=== PATIENT | male | born 1960 | race Caucasian/White ===

== ENCOUNTER 2020-12-10 18:55 | Inpatient (IN) ==
[2020-12-10] MEDS ORDERED: Ondansetron ODT 4 MG TAB.RAPDIS SL PRN (21:44)
[2020-12-10] MEDS ORDERED: Melatonin 3 MG TABLET PO PRN (21:44)
[2020-12-10] MEDS ORDERED: Naloxone 0.4 MG/ML INJ IVP PRN (21:44)
[2020-12-10] MEDS ORDERED: Dextrose Gel 15 GM/37.5 ML TUBE PO PRN ×2 (21:48)
[2020-12-10] MEDS ORDERED: *HR* Dextrose 50 % in Water (Vial) 50 ML VIAL IVP PRN (21:48)
[2020-12-10] MEDS ORDERED: *HR* Labetalol 20 MG/4 ML SYRINGE IVP ONE (21:48)
[2020-12-10] MEDS ORDERED: D5% in Water 1,000 ML IVC PRN (21:48)
[2020-12-10 22:43] LABS: BUN/Creatinine Ratio 13 (6-26); Blood Urea Nitrogen 17 mg/dL (8-23); Carbon Dioxide 24 mEq/L (23-29); Chloride 103 mEq/L (98-107); Glucose 173 mg/dL (70-105); Osmolality,Calculated 288 (280-300); Potassium 3.4 mEq/L (3.5-5.1); Sodium 136 mEq/L (136-145); eGFR For African Americans > 60 (> 60); eGFR For Non-African Americans 55 (> 60)
[2020-12-10] MEDS: Insulin LISPRO 300 UNITS/3 ML VIAL SUBQ SCH (23:44)
[2020-12-11 02:14] LABS: Basophils # 0.1 K/mcL (0.0-0.2); Basophils % 0.7 %; Eosinophils # 0.4 K/mcL (0.0-0.6); Eosinophils % 4.5 %; Hemoglobin 12.7 g/dL (12.9-16.9); Immature Granulocytes % 0.5 % (0-4); Lymphocytes # 2.3 K/mcL (0.6-4.6); Lymphocytes % 26.1 %; Mean Corpuscular HGB Conc 32.6 g/dL (31.6-35.5); Mean Corpuscular Volume 79.8 fL (83.0-100.0); Monocytes # 0.7 K/mcL (0.0-1.3); Monocytes % 7.7 %; Neutrophils # 5.4 K/mcL (1.6-8.9); Platelet Count 244 K/mcL (140-400); Red Blood Count 4.89 M/mcL (4.19-5.50); Red Cell Distribution Width 14.4 % (11.5-14.5); Segmented Neutrophils % 60.5 %; White Blood Count 8.8 K/mcL (4.3-11.1)
[2020-12-11 02:45] LABS: Alanine Aminotransferase 9 Units/L (7-52); Albumin 3.1 g/dL (3.5-5.7); Alkaline Phosphatase 54 Units/L (34-104); Aspartate Amino Transferase 15 Units/L (13-39); BUN/Creatinine Ratio 13 (6-26); Bilirubin,Total 0.8 mg/dL (0.3-1.0); Blood Urea Nitrogen 19 mg/dL (8-23); Calcium 8.6 mg/dL (8.6-10.3); Carbon Dioxide 26 mEq/L (23-29); Chloride 103 mEq/L (98-107); Globulin 3.1 g/dL (2.4-3.5); Glucose 252 mg/dL (70-105); Magnesium 1.2 mg/dL (1.6-2.6); Osmolality,Calculated 297 (280-300); Potassium 3.6 mEq/L (3.5-5.1); Sodium 138 mEq/L (136-145); Total Protein 6.2 g/dL (6.4-8.9); Troponin I 0.07 ng/mL (< 0.04); eGFR For African Americans > 60 (> 60); eGFR For Non-African Americans 51 (> 60)
[2020-12-11] MEDS: Insulin LISPRO 300 UNITS/3 ML VIAL SUBQ SCH ×4 (06:00→20:54)
[2020-12-11] MEDS ORDERED: Perflutren Lipid Microsphere 1.3 ML in 0.9 % Sodium Chloride 8.7 ML IVP PRN (06:45)
[2020-12-11] MEDS ORDERED: amLODIPine 5 MG TABLET PO SCH (09:00)
[2020-12-11 12:36] LABS: Bilirubin,Urine Negative (Negative); Blood,Urine Small (Negative); Clarity,Urine Clear (Clear); Color,Urine Yellow (Yellow); Glucose,Urine (UA) 50 mg/dL (Normal); Hyaline Casts,Urine Few per lpf (None Seen); Ketones,Urine Negative (Negative); Leukocyte Esterase,Urine Negative (Negative); Mucus,Urine Few per lpf (None-Few); Nitrite,Urine Negative (Negative); PH,Urine 6.5 pH Units (5.0-8.0); Protein,Urine >=300 mg/dL (Neg-Trace); RBC,Urine 0-3 per hpf (0-3); Specific Gravity,Urine 1.024 (1.010-1.025); Squamous Epithelial Cell,Urine Few per hpf (None-Few); Urobilinogen,Urine Normal (Normal); WBC,Urine 0-3 per hpf (0-3)
[2020-12-11 12:47] LABS: Amphetamine Screen,Urine Positive ng/mL (Cutoff=1000); Barbiturate Screen,Urine Negative ng/mL (Cutoff=200); Benzodiazepines Screen,Urine Negative ng/mL (Cutoff=200); Cannabinoid Screen,Urine Positive ng/mL (Cutoff = 50); Cocaine Screen,Urine Negative ng/mL (Cutoff= 300); Opiate Screen,Urine Negative ng/mL (Cutoff=300); Phencyclidine Screen,Urine Negative ng/mL (Cutoff=25)
[2020-12-11] MEDS: hydrALAZINE 25 MG TABLET PO SCH ×2 (14:13→20:54)
[2020-12-11] MEDS ORDERED: amLODIPine 5 MG TABLET PO ONE (17:00)
[2020-12-12] MEDS: Insulin LISPRO 300 UNITS/3 ML VIAL SUBQ SCH ×4 (08:31→20:40)
[2020-12-12] MEDS: hydrALAZINE 25 MG TABLET PO SCH ×3 (08:31→20:35)
[2020-12-12] MEDS: carvediloL 6.25 MG TABLET PO SCH ×2 (08:31→17:08)
[2020-12-12] MEDS: Acetaminophen 325 MG TABLET PO PRN ×3 (08:41→21:18)
[2020-12-12] MEDS ORDERED: amLODIPine 5 MG TABLET PO SCH (09:00)
[2020-12-12 10:09] LABS: Basophils # 0.1 K/mcL (0.0-0.2); Basophils % 0.7 %; Eosinophils # 0.4 K/mcL (0.0-0.6); Eosinophils % 4.3 %; Hemoglobin 13.2 g/dL (12.9-16.9); Immature Granulocytes % 0.4 % (0-4); Lymphocytes # 1.6 K/mcL (0.6-4.6); Lymphocytes % 19.1 %; Mean Corpuscular HGB Conc 32.2 g/dL (31.6-35.5); Mean Corpuscular Hemoglobin 25.6 pg (28.0-33.3); Mean Corpuscular Volume 79.5 fL (83.0-100.0); Mean Platelet Volume 9.1 fL (9.4-12.4); Monocytes # 0.5 K/mcL (0.0-1.3); Monocytes % 6.6 %; Neutrophils # 5.6 K/mcL (1.6-8.9); Platelet Count 215 K/mcL (140-400); Red Blood Count 5.16 M/mcL (4.19-5.50); Red Cell Distribution Width 14.3 % (11.5-14.5); Segmented Neutrophils % 68.9 %; White Blood Count 8.2 K/mcL (4.3-11.1)
[2020-12-12 10:28] LABS: BUN/Creatinine Ratio 15 (6-26); Blood Urea Nitrogen 17 mg/dL (8-23); Carbon Dioxide 27 mEq/L (23-29); Chloride 103 mEq/L (98-107); Glucose 233 mg/dL (70-105); Osmolality,Calculated 291 (280-300); Potassium 3.8 mEq/L (3.5-5.1); Sodium 136 mEq/L (136-145); eGFR For African Americans > 60 (> 60); eGFR For Non-African Americans > 60 (> 60)
[2020-12-13 01:52] LABS: Basophils # 0.1 K/mcL (0.0-0.2); Basophils % 0.7 %; Eosinophils # 0.4 K/mcL (0.0-0.6); Eosinophils % 4.8 %; Hematocrit 40.7 % (37.5-50.1); Hemoglobin 13.3 g/dL (12.9-16.9); Immature Granulocytes % 0.5 % (0-4); Lymphocytes # 2.1 K/mcL (0.6-4.6); Lymphocytes % 25.1 %; Mean Corpuscular HGB Conc 32.7 g/dL (31.6-35.5); Mean Corpuscular Hemoglobin 26.1 pg (28.0-33.3); Mean Corpuscular Volume 79.8 fL (83.0-100.0); Mean Platelet Volume 9.4 fL (9.4-12.4); Monocytes # 0.6 K/mcL (0.0-1.3); Monocytes % 7.2 %; Neutrophils # 5.1 K/mcL (1.6-8.9); Platelet Count 234 K/mcL (140-400); Red Cell Distribution Width 14.4 % (11.5-14.5); Segmented Neutrophils % 61.7 %; White Blood Count 8.3 K/mcL (4.3-11.1)
[2020-12-13 02:11] LABS: BUN/Creatinine Ratio 16 (6-26); Blood Urea Nitrogen 18 mg/dL (8-23); Carbon Dioxide 25 mEq/L (23-29); Chloride 101 mEq/L (98-107); Glucose 156 mg/dL (70-105); Osmolality,Calculated 285 (280-300); Potassium 3.5 mEq/L (3.5-5.1); Sodium 135 mEq/L (136-145); eGFR For African Americans > 60 (> 60); eGFR For Non-African Americans > 60 (> 60)
[2020-12-13] MEDS: Acetaminophen 325 MG TABLET PO PRN (07:48)
[2020-12-13] MEDS: hydrALAZINE 25 MG TABLET PO SCH ×3 (07:48→13:15)
[2020-12-13] MEDS: carvediloL 6.25 MG TABLET PO SCH (07:49)
[2020-12-13] MEDS: Insulin LISPRO 300 UNITS/3 ML VIAL SUBQ SCH ×2 (07:50→12:13)
[2020-12-13] MEDS ORDERED: lisinopriL 5 MG TABLET PO SCH ×2 (09:00)
[2020-12-13] MEDS ORDERED: Spironolactone 12.5 MG TABLET PO SCH (10:15)
[2020-12-13] MEDS ORDERED: Ipratropium/Albuterol Neb 3 ML IH PRN (14:41)
[2020-12-13 14:54] VITALS: BP 152/82
[2020-12-13] MEDS ORDERED: Doxycycline 100 MG CAPSULE PO SCH (15:24)
== END 2020-12-13 17:11 | disposition home or self-care (01) | DRG 292 ==
LOC: 3BNU → SUATTDRO 12-12 13:33
PROVIDERS: ADMIT Internal Medicine; ATTEND Internal Medicine

== ENCOUNTER 2021-02-12 17:22 | Inpatient (IN) ==
[2021-02-12] MEDS ORDERED: Naloxone 0.4 MG/ML INJ IVP PRN (20:29)
[2021-02-12] MEDS ORDERED: Acetaminophen 325 MG TABLET PO PRN (20:29)
[2021-02-12] MEDS ORDERED: Ondansetron 4 MG/2 ML VIAL IVP PRN ×2 (20:29→20:35)
[2021-02-12] MEDS ORDERED: Insulin LISPRO 300 UNITS/3 ML VIAL SUBQ PRN (20:35)
[2021-02-12] MEDS ORDERED: Nitroglycerin 0.4 MG TAB.SUBL SL PRN (20:35)
[2021-02-12] MEDS ORDERED: D5% in 0.45% NACL w KCl 20 MEQ/1,000 ML MLS IVC PRN (20:35)
[2021-02-12] MEDS ORDERED: *HR* Dextrose 50 % in Water (Vial) 50 ML VIAL IVP PRN (20:35)
[2021-02-12] MEDS ORDERED: D5% in 0.45% NACL 1,000 ML IVC PRN (20:35)
[2021-02-12] MEDS ORDERED: Perflutren Lipid Microsphere 1.3 ML in 0.9 % Sodium Chloride 8.7 ML IVP PRN (20:40)
[2021-02-12 21:32] LABS: Basophils # 0.1 K/mcL (0.0-0.2); Basophils % 0.4 %; Eosinophils % 0.1 %; Hematocrit 45.1 % (37.5-50.1); Hemoglobin 14.3 g/dL (12.9-16.9); Immature Granulocytes % 0.9 % (0-4); Lymphocytes # 1.8 K/mcL (0.6-4.6); Lymphocytes % 12.9 %; Mean Corpuscular HGB Conc 31.7 g/dL (31.6-35.5); Mean Corpuscular Hemoglobin 25.4 pg (28.0-33.3); Mean Corpuscular Volume 80.1 fL (83.0-100.0); Mean Platelet Volume 9.4 fL (9.4-12.4); Monocytes # 0.9 K/mcL (0.0-1.3); Monocytes % 6.4 %; Neutrophils # 10.8 K/mcL (1.6-8.9); Platelet Count 246 K/mcL (140-400); Red Blood Count 5.63 M/mcL (4.19-5.50); Red Cell Distribution Width 14.3 % (11.5-14.5); Segmented Neutrophils % 79.3 %; White Blood Count 13.7 K/mcL (4.3-11.1)
[2021-02-12 21:33] LABS: VBG HCO3 25 mEq/L (21-27); VBG PCO2 55 mmHg (41-51); VBG PH 7.27 pH Units (7.32-7.42); VBG PO2 92 mmHg (25-50)
[2021-02-12 21:48] LABS: INR 1.1; Prothrombin Time 12.8 Seconds (9.4-12.1)
[2021-02-12 21:49] LABS: Calcium 8.6 mg/dL (8.6-10.3)
[2021-02-12 21:52] LABS: Magnesium 1.4 mg/dL (1.6-2.6); Phosphorous 3.7 mg/dL (2.7-4.5)
[2021-02-12 21:58] LABS: Troponin I 0.82 ng/mL (< 0.04)
[2021-02-12] MEDS ORDERED: *HR* Heparin 5,000 UNIT/ML VIAL IVP ONE (22:18)
[2021-02-12] MEDS ORDERED: *HR* Heparin 5,000 UNIT/ML VIAL IVP PRN (22:18)
[2021-02-12] MEDS: Aspirin 81 MG TAB.CHEW PO SCH (22:30)
[2021-02-12] MEDS ORDERED: Insulin Human Regular 10 UNIT in 0.9 % Sodium Chloride 10 ML IV ONE (22:41)
[2021-02-12] MEDS ORDERED: Albuterol 2.5 MG/3 ML NEBULIZER IH ONE (22:41)
[2021-02-12] MEDS ORDERED: Calcium Gluconate 1gm/50mL 1 GM/50 ML BAG IVPB ONE (22:42)
[2021-02-12 22:44] LABS: Bilirubin,Urine Negative (Negative); Blood,Urine Trace (Negative); Clarity,Urine Clear (Clear); Color,Urine Yellow (Yellow); Glucose,Urine (UA) >=1000 mg/dL (Normal); Hyaline Casts,Urine Few per lpf (None Seen); Ketones,Urine Negative (Negative); Leukocyte Esterase,Urine Negative (Negative); Mucus,Urine Few per lpf (None-Few); Nitrite,Urine Negative (Negative); PH,Urine 5.5 pH Units (5.0-8.0); Protein,Urine >=600 mg/dL (Neg-Trace); RBC,Urine 0-3 per hpf (0-3); Specific Gravity,Urine 1.029 (1.010-1.025); Squamous Epithelial Cell,Urine Few per hpf (None-Few); Urobilinogen,Urine Normal (Normal); WBC,Urine 0-3 per hpf (0-3)
[2021-02-12] MEDS ORDERED: Magnesium Oxide 400 MG TABLET PO ONE (22:44)
[2021-02-12 22:53] LABS: Amphetamine Screen,Urine Negative ng/mL (Cutoff=1000); Barbiturate Screen,Urine Negative ng/mL (Cutoff=200); Benzodiazepines Screen,Urine Negative ng/mL (Cutoff=200); Cannabinoid Screen,Urine Negative ng/mL (Cutoff = 50); Cocaine Screen,Urine Negative ng/mL (Cutoff= 300); Opiate Screen,Urine Negative ng/mL (Cutoff=300); Phencyclidine Screen,Urine Negative ng/mL (Cutoff=25)
[2021-02-12 23:45] LABS: Heparin anti-factor XA UFH < 0.04 IU/mL (0.30-0.70)
[2021-02-12 23:46] LABS: INR 1.1; Prothrombin Time 12.3 Seconds (9.4-12.1)
[2021-02-13] MEDS: Heparin 25,000UNIT/250ML 1/2NS 25,000 UNIT/250 ML IV.SOLN IVC SCH ×2 (00:20→19:10)
[2021-02-13 00:56] LABS: Creatinine,Urine 191 mg/dL; Protein/Creatinine Ratio,Urine 4.25 mg/mg (0.00-0.20); Sodium, Urine 11.8 mEq/L
[2021-02-13 01:15] LABS: Basophils # 0.1 K/mcL (0.0-0.2); Basophils % 0.6 %; Eosinophils % 0.2 %; Hematocrit 44.1 % (37.5-50.1); Hemoglobin 13.8 g/dL (12.9-16.9); Immature Granulocytes % 0.7 % (0-4); Lymphocytes # 2.7 K/mcL (0.6-4.6); Lymphocytes % 21.2 %; Mean Corpuscular HGB Conc 31.3 g/dL (31.6-35.5); Mean Corpuscular Hemoglobin 25.3 pg (28.0-33.3); Mean Corpuscular Volume 80.9 fL (83.0-100.0); Mean Platelet Volume 9.6 fL (9.4-12.4); Monocytes # 1.2 K/mcL (0.0-1.3); Monocytes % 9.1 %; Neutrophils # 8.7 K/mcL (1.6-8.9); Platelet Count 243 K/mcL (140-400); Red Blood Count 5.45 M/mcL (4.19-5.50); Red Cell Distribution Width 14.4 % (11.5-14.5); Segmented Neutrophils % 68.2 %; White Blood Count 12.7 K/mcL (4.3-11.1)
[2021-02-13 01:32] LABS: Estimated Average Glucose 303 mg/dl; Hemoglobin A1C 12.2 %
[2021-02-13 01:35] LABS: Calcium 8.5 mg/dL (8.6-10.3)
[2021-02-13 01:37] LABS: Calcium 8.6 mg/dL (8.6-10.3); Chol/HDL Ratio 8.3 (0-4.9); Magnesium 1.6 mg/dL (1.6-2.6); Phosphorous 3.7 mg/dL (2.7-4.5)
[2021-02-13] MEDS ORDERED: Insulin DETEMIR 100 UNIT/ML X5UNITS SUBQ SCH ×2 (02:15→21:00)
[2021-02-13 02:52] LABS: VBG HCO3 26 mEq/L (21-27); VBG PCO2 48 mmHg (41-51); VBG PH 7.34 pH Units (7.32-7.42); VBG PO2 100 mmHg (25-50)
[2021-02-13] MEDS: 0.45 % Sodium Chloride w/KCl 20 MEQ/1,000 ML MLS IVC SCH ×3 (07:18→07:20)
[2021-02-13] MEDS: *HR* Heparin 5,000 UNIT/ML VIAL IVP PRN ×3 (08:59→23:21)
[2021-02-13] MEDS: Aspirin 81 MG TAB.CHEW PO SCH (09:00)
[2021-02-13] MEDS ORDERED: Insulin DETEMIR 100 UNIT/ML X5UNITS SUBQ ONE ×2 (10:04→15:15)
[2021-02-13] MEDS ORDERED: Ringers Solution, Lactated 1,000 ML IVC ONE (10:07)
[2021-02-13] MEDS: Insulin LISPRO 300 UNITS/3 ML VIAL SUBQ SCH ×3 (12:06→21:07)
[2021-02-13] MEDS: Insulin DETEMIR 100 UNIT/ML X5UNITS SUBQ SCH (21:07)
[2021-02-14 05:55] LABS: Hematocrit 39.5 % (37.5-50.1); Hemoglobin 12.7 g/dL (12.9-16.9); Mean Corpuscular HGB Conc 32.2 g/dL (31.6-35.5); Mean Corpuscular Hemoglobin 26.1 pg (28.0-33.3); Mean Corpuscular Volume 81.1 fL (83.0-100.0); Mean Platelet Volume 9.4 fL (9.4-12.4); Platelet Count 211 K/mcL (140-400); Red Blood Count 4.87 M/mcL (4.19-5.50); Red Cell Distribution Width 14.4 % (11.5-14.5); White Blood Count 10.7 K/mcL (4.3-11.1)
[2021-02-14] MEDS ORDERED: *HR* Metoprolol 5 MG/5 ML VIAL IVP ONE (05:57)
[2021-02-14 06:20] LABS: Calcium 8.7 mg/dL (8.6-10.3); Potassium 4.1 mEq/L (3.5-5.1)
[2021-02-14] MEDS: Insulin LISPRO 300 UNITS/3 ML VIAL SUBQ SCH ×4 (08:20→20:37)
[2021-02-14] MEDS: Metoprolol XL (24 HR) Succ 25 MG TAB.ER.24H PO SCH ×2 (09:10→20:36)
[2021-02-14] MEDS: Aspirin 81 MG TAB.CHEW PO SCH (09:10)
[2021-02-14] MEDS: Heparin 25,000UNIT/250ML 1/2NS 25,000 UNIT/250 ML IV.SOLN IVC SCH (09:42)
[2021-02-14] MEDS: Insulin DETEMIR 100 UNIT/ML X5UNITS SUBQ SCH (20:37)
[2021-02-14] MEDS ORDERED: Apixaban 5 MG TABLET PO SCH (21:00)
[2021-02-15 01:32] LABS: Hematocrit 40.5 % (37.5-50.1); Hemoglobin 12.9 g/dL (12.9-16.9); Mean Corpuscular HGB Conc 31.9 g/dL (31.6-35.5); Mean Corpuscular Hemoglobin 25.6 pg (28.0-33.3); Mean Corpuscular Volume 80.4 fL (83.0-100.0); Mean Platelet Volume 9.7 fL (9.4-12.4); Platelet Count 227 K/mcL (140-400); Red Blood Count 5.04 M/mcL (4.19-5.50); Red Cell Distribution Width 14.4 % (11.5-14.5); White Blood Count 10.9 K/mcL (4.3-11.1)
[2021-02-15 01:50] LABS: Calcium 8.6 mg/dL (8.6-10.3); Potassium 3.9 mEq/L (3.5-5.1)
[2021-02-15] MEDS: Insulin LISPRO 300 UNITS/3 ML VIAL SUBQ SCH (07:54)
[2021-02-15] MEDS: Aspirin 81 MG TAB.CHEW PO SCH (07:55)
[2021-02-15] MEDS: Metoprolol XL (24 HR) Succ 25 MG TAB.ER.24H PO SCH (07:55)
[2021-02-15 11:17] VITALS: BP 157/93; PULSE 75; TEMP 98; O2SAT 95
[2021-02-16 07:17] LABS: ANA IgG by ELISA NONE DETECTED (None Detected)
[2021-02-16 09:12] LABS: Lambda Qnt Free Light Chains 34.34 mg/L (5.71-26.30)
[2021-02-16 13:48] LABS: Kappa Qnt Free Light Chains 49.28 mg/L (3.30-19.40)
[2021-02-16 23:37] LABS: Alpha 2 Globulin (PEP) 1.03 g/dL (0.48-1.05); Beta Globulin (PEP) 0.78 g/dL (0.48-1.10)
[2021-02-17 06:56] LABS: IFE Reflexed NOT DONE
== END 2021-02-15 14:10 | disposition home or self-care (01) | DRG 280 ==
LOC: 2NNU → SUATTDRO 19:26 → 2ANU 02-14 18:06
PROVIDERS: ADMIT Internal Medicine; ATTEND Internal Medicine

== ENCOUNTER 2021-06-27 | Observation (INO) ==
[2021-06-28] MEDS ORDERED: Melatonin 3 MG TABLET PO PRN (04:51)
[2021-06-28] MEDS ORDERED: Naloxone 0.4 MG/ML INJ IVP PRN (04:51)
[2021-06-28] MEDS ORDERED: Perflutren Lipid Microsphere 1.3 ML in 0.9 % Sodium Chloride 8.7 ML IVP PRN (04:59)
[2021-06-28] MEDS ORDERED: *HR* Heparin 5,000 UNIT/ML VIAL IVP PRN (05:46)
[2021-06-28 05:51] LABS: Mean Corpuscular HGB Conc 32.5 g/dL (31.6-35.5); Mean Corpuscular Hemoglobin 25.4 pg (28.0-33.3); Mean Corpuscular Volume 78.3 fL (83.0-100.0); Platelet Count 254 K/mcL (140-400); Red Blood Count 5.11 M/mcL (4.19-5.50); Red Cell Distribution Width 14.2 % (11.5-14.5); White Blood Count 10.2 K/mcL (4.3-11.1)
[2021-06-28 05:58] LABS: Prothrombin Time 11.1 Seconds (9.4-12.1)
[2021-06-28 05:59] LABS: Heparin anti-factor XA UFH < 0.04 IU/mL (0.30-0.70)
[2021-06-28 06:00] LABS: Calcium 8.2 mg/dL (8.6-10.3); Potassium 3.7 mEq/L (3.5-5.1)
[2021-06-28 06:01] LABS: Activated Partial Thrombo Time 30.9 Seconds (26.0-36.0); Troponin I 0.1 ng/mL (< 0.04)
[2021-06-28 06:10] LABS: Magnesium 1.1 mg/dL (1.6-2.6)
[2021-06-28] MEDS: Heparin 25,000 UNIT/250 ML 25,000 UNIT/250 ML IV.SOLN IVC SCH ×2 (06:22→21:27)
[2021-06-28 06:27] LABS: Chol/HDL Ratio 7.1 (0-4.9)
[2021-06-28] MEDS: Acetaminophen 325 MG TABLET PO PRN ×2 (06:57→15:03)
[2021-06-28] MEDS: Metoprolol XL (24 HR) Succ 50 MG TAB.ER.24H PO SCH (08:08)
[2021-06-28] MEDS: Aspirin 81 MG TAB.CHEW PO SCH (08:08)
[2021-06-28] MEDS ORDERED: 0.9 % Sodium Chloride 1,000 ML IVC SCH (08:45)
[2021-06-28 09:13] LABS: Amphetamine Screen,Urine Negative ng/mL (Cutoff=1000); Barbiturate Screen,Urine Negative ng/mL (Cutoff=200); Benzodiazepines Screen,Urine Negative ng/mL (Cutoff=200); Cannabinoid Screen,Urine Negative ng/mL (Cutoff = 50); Cocaine Screen,Urine Negative ng/mL (Cutoff= 300); Opiate Screen,Urine Negative ng/mL (Cutoff=300); Phencyclidine Screen,Urine Negative ng/mL (Cutoff=25)
[2021-06-28 09:55] LABS: Estimated Average Glucose 212 mg/dl
[2021-06-28] MEDS ORDERED: Dextrose Gel 15 GM/37.5 ML TUBE PO PRN ×2 (10:52)
[2021-06-28] MEDS ORDERED: D5% in Water 1,000 ML IVC PRN (10:52)
[2021-06-28] MEDS ORDERED: *HR* Dextrose 50 % in Water (Syg) 50 ML SYRINGE IVP PRN (10:52)
[2021-06-28] MEDS: Insulin LISPRO 300 UNITS/3 ML VIAL SUBQ SCH ×2 (12:18→16:44)
[2021-06-28] MEDS: *HR* Heparin 5,000 UNIT/ML VIAL IVP PRN ×2 (14:57→22:32)
[2021-06-28] MEDS: hydrALAZINE 25 MG TABLET PO SCH (16:44)
[2021-06-28] MEDS: Isosorbide MONOnitrate (24 HR) 60 MG TAB.ER.24H PO SCH (16:44)
[2021-06-28] MEDS ORDERED: Insulin DETEMIR 100 UNIT/ML X5UNITS SUBQ SCH (21:00)
[2021-06-29] MEDS: hydrALAZINE 25 MG TABLET PO SCH ×2 (01:07→09:33)
[2021-06-29] MEDS: *HR* Heparin 5,000 UNIT/ML VIAL IVP PRN (05:41)
[2021-06-29 07:22] VITALS: O2SAT 95
[2021-06-29] MEDS: Insulin LISPRO 300 UNITS/3 ML VIAL SUBQ SCH (08:55)
[2021-06-29 09:28] LABS: Hematocrit 40.3 % (37.5-50.1); Hemoglobin 12.6 g/dL (12.9-16.9); Mean Corpuscular HGB Conc 31.3 g/dL (31.6-35.5); Mean Corpuscular Hemoglobin 24.9 pg (28.0-33.3); Mean Corpuscular Volume 79.5 fL (83.0-100.0); Mean Platelet Volume 9.2 fL (9.4-12.4); Platelet Count 230 K/mcL (140-400); Red Blood Count 5.07 M/mcL (4.19-5.50); Red Cell Distribution Width 14.6 % (11.5-14.5); White Blood Count 10.4 K/mcL (4.3-11.1)
[2021-06-29] MEDS: Isosorbide MONOnitrate (24 HR) 60 MG TAB.ER.24H PO SCH (09:33)
[2021-06-29] MEDS: Metoprolol XL (24 HR) Succ 50 MG TAB.ER.24H PO SCH (09:33)
[2021-06-29] MEDS: Aspirin 81 MG TAB.CHEW PO SCH (09:33)
[2021-06-29] MEDS: Acetaminophen 325 MG TABLET PO PRN (09:33)
[2021-06-29] MEDS: Heparin 25,000 UNIT/250 ML 25,000 UNIT/250 ML IV.SOLN IVC SCH (09:37)
[2021-06-29 09:56] LABS: Calcium 8.3 mg/dL (8.6-10.3)
[2021-06-29 11:45] VITALS: BP 147/70; PULSE 73; TEMP 97.6
== END 2021-06-29 13:42 | disposition home or self-care (01) ==
LOC: 3BNU → SUATTDRO 06-28 03:58
PROVIDERS: ADMIT Internal Medicine; ATTEND Internal Medicine

== ENCOUNTER 2021-08-25 22:28 | Inpatient (IN) ==
[2021-08-26] MEDS ORDERED: Isovue-370 500 ML BOTTLE IVP ONE (02:29)
[2021-08-26 02:45] LABS: Basophils # 0.1 K/mcL (0.0-0.2); Basophils % 0.7 %; Eosinophils # 0.2 K/mcL (0.0-0.6); Eosinophils % 2.4 %; Hematocrit 41.8 % (37.5-50.1); Immature Granulocytes % 0.4 % (0-4); Lymphocytes # 1.7 K/mcL (0.6-4.6); Lymphocytes % 16.6 %; Mean Corpuscular HGB Conc 31.1 g/dL (31.6-35.5); Mean Corpuscular Hemoglobin 25.3 pg (28.0-33.3); Mean Corpuscular Volume 81.5 fL (83.0-100.0); Mean Platelet Volume 9.2 fL (9.4-12.4); Monocytes # 0.6 K/mcL (0.0-1.3); Monocytes % 5.6 %; Neutrophils # 7.5 K/mcL (1.6-8.9); Platelet Count 277 K/mcL (140-400); Red Blood Count 5.13 M/mcL (4.19-5.50); Red Cell Distribution Width 14.7 % (11.5-14.5); Segmented Neutrophils % 74.3 %; White Blood Count 10.1 K/mcL (4.3-11.1)
[2021-08-26 03:10] LABS: Bilirubin,Urine Negative (Negative); Blood,Urine Trace (Negative); Clarity,Urine Clear (Clear); Color,Urine Light-Yellow (Yellow); Glucose,Urine (UA) 30 mg/dL (Normal); Hyaline Casts,Urine Few per lpf (None Seen); Ketones,Urine Negative (Negative); Leukocyte Esterase,Urine Negative (Negative); Nitrite,Urine Negative (Negative); Protein,Urine >=600 mg/dL (Neg-Trace); RBC,Urine 0-3 per hpf (0-3); Squamous Epithelial Cell,Urine Few per hpf (None-Few); Urobilinogen,Urine Normal (Normal); WBC,Urine 0-3 per hpf (0-3)
[2021-08-26 03:16] LABS: Albumin 3.9 g/dL (3.5-5.7); Albumin/Globulin Ratio 1.2 (1.1-2.2); Bilirubin,Direct 0.2 mg/dL (0.0-0.2); Bilirubin,Indirect 1.3 mg/dL (0.0-1.0); Bilirubin,Total 1.5 mg/dL (0.3-1.0); Calcium 9.5 mg/dL (8.6-10.3); Globulin 3.2 g/dL (2.4-3.5); Potassium 3.8 mEq/L (3.5-5.1); Total Protein 7.1 g/dL (6.4-8.9); Troponin I 0.06 ng/mL (< 0.04)
[2021-08-26] MEDS ORDERED: Furosemide 40 MG/4 ML VIAL IVP ONE (04:14)
[2021-08-26] MEDS: Nitroglycerin 0.4 MG TAB.SUBL SL PRN ×3 (05:01→05:14)
[2021-08-26] MEDS ORDERED: Melatonin 3 MG TABLET PO PRN (05:19)
[2021-08-26] MEDS ORDERED: Naloxone 0.4 MG/ML INJ IVP PRN (05:19)
[2021-08-26] MEDS ORDERED: *HR* Dextrose 50 % in Water (Syg) 50 ML SYRINGE IVP PRN (05:27)
[2021-08-26] MEDS ORDERED: D5% in Water 1,000 ML IVC PRN (05:27)
[2021-08-26] MEDS ORDERED: Dextrose Gel 15 GM/37.5 ML TUBE PO PRN ×2 (05:27)
[2021-08-26 05:47] LABS: Amphetamine Screen,Urine Negative ng/mL (Cutoff=1000); Barbiturate Screen,Urine Negative ng/mL (Cutoff=200); Benzodiazepines Screen,Urine Negative ng/mL (Cutoff=200); Cannabinoid Screen,Urine Negative ng/mL (Cutoff = 50); Cocaine Screen,Urine Negative ng/mL (Cutoff= 300); Opiate Screen,Urine Negative ng/mL (Cutoff=300); Phencyclidine Screen,Urine Negative ng/mL (Cutoff=25)
[2021-08-26] MEDS ORDERED: hydrALAZINE 25 MG TABLET PO SCH (08:00)
[2021-08-26] MEDS: Aspirin 81 MG TAB.CHEW PO SCH (09:00)
[2021-08-26] MEDS: carvediloL 6.25 MG TABLET PO SCH ×2 (12:23→17:26)
[2021-08-26] MEDS: Isosorbide MONOnitrate (24 HR) 60 MG TAB.ER.24H PO SCH (12:23)
[2021-08-26] MEDS: lisinopriL 5 MG TABLET PO SCH (12:40)
[2021-08-26] MEDS ORDERED: Furosemide 20 MG/2 ML VIAL IVP SCH (15:00)
[2021-08-26] MEDS: Gabapentin 300 MG CAPSULE PO SCH ×2 (15:11→20:10)
[2021-08-26] MEDS: hydrALAZINE 25 MG TABLET PO SCH ×2 (15:11→23:33)
[2021-08-26] MEDS: Insulin LISPRO 300 UNITS/3 ML VIAL SUBQ SCH ×2 (17:26→20:09)
[2021-08-26 22:41] LABS: Adenovirus Not Detected (Not Detect); Bordetella Pertussis Not Detected (Not Detect); Chlamydophila pneumoniae Not Detected (Not Detect); Coronavirus 229E Not Detected (Not Detect); Coronavirus HKU1 Not Detected (Not Detect); Coronavirus NL63 Not Detected (Not Detect); Coronavirus OC43 Not Detected (Not Detect); Human Metapneumovirus Not Detected (Not Detect); Human Rhinovirus/Enterovirus Not Detected (Not Detect); Influenza A Subtype 2009 H1 Not Detected (Not Detect); Influenza B Not Detected (Not Detect); Mycoplasma pneumoniae Not Detected (Not Detect); Parainfluenza Virus 1 Not Detected (Not Detect); Parainfluenza Virus 2 Not Detected (Not Detect); Parainfluenza Virus 3 Not Detected (Not Detect); Parainfluenza Virus 4 Not Detected (Not Detect); Respiratory Syncytial Virus Not Detected (Not Detect); SARS-CoV-2 Not Detected (Not Detect)
[2021-08-27 05:08] LABS: Hematocrit 39.9 % (37.5-50.1); Hemoglobin 12.6 g/dL (12.9-16.9); Mean Corpuscular HGB Conc 31.6 g/dL (31.6-35.5); Mean Corpuscular Hemoglobin 25.4 pg (28.0-33.3); Mean Corpuscular Volume 80.4 fL (83.0-100.0); Mean Platelet Volume 9.3 fL (9.4-12.4); Platelet Count 261 K/mcL (140-400); Red Blood Count 4.96 M/mcL (4.19-5.50); Red Cell Distribution Width 14.7 % (11.5-14.5)
[2021-08-27 05:29] LABS: Calcium 9.1 mg/dL (8.6-10.3); Magnesium 1.5 mg/dL (1.6-2.6); Phosphorous 4.7 mg/dL (2.7-4.5); Potassium 3.9 mEq/L (3.5-5.1)
[2021-08-27] MEDS: hydrALAZINE 25 MG TABLET PO SCH ×2 (07:11→15:55)
[2021-08-27] MEDS: Gabapentin 300 MG CAPSULE PO SCH ×3 (07:11→21:20)
[2021-08-27] MEDS: Isosorbide MONOnitrate (24 HR) 60 MG TAB.ER.24H PO SCH (07:11)
[2021-08-27] MEDS: lisinopriL 5 MG TABLET PO SCH (07:11)
[2021-08-27] MEDS: Aspirin 81 MG TAB.CHEW PO SCH (07:12)
[2021-08-27] MEDS: carvediloL 6.25 MG TABLET PO SCH ×2 (07:12→15:55)
[2021-08-27] MEDS: Insulin LISPRO 300 UNITS/3 ML VIAL SUBQ SCH ×4 (07:20→21:20)
[2021-08-27] MEDS ORDERED: Acetaminophen 325 MG TABLET PO PRN (07:40)
[2021-08-27] MEDS ORDERED: 0.9 % Sodium Chloride 500 ML IVC ONE (07:44)
[2021-08-27] MEDS: Furosemide 40 MG TABLET PO SCH (07:56)
[2021-08-27 10:23] LABS: Calcium 9.6 mg/dL (8.6-10.3); Potassium 3.7 mEq/L (3.5-5.1)
[2021-08-28] MEDS: hydrALAZINE 25 MG TABLET PO SCH ×3 (00:07→16:17)
[2021-08-28] MEDS: Insulin LISPRO 300 UNITS/3 ML VIAL SUBQ SCH ×4 (06:57→21:56)
[2021-08-28] MEDS: Gabapentin 300 MG CAPSULE PO SCH ×3 (08:16→22:05)
[2021-08-28] MEDS: Aspirin 81 MG TAB.CHEW PO SCH (08:17)
[2021-08-28] MEDS: Isosorbide MONOnitrate (24 HR) 60 MG TAB.ER.24H PO SCH (08:17)
[2021-08-28] MEDS: Furosemide 40 MG TABLET PO SCH (08:17)
[2021-08-28] MEDS: carvediloL 6.25 MG TABLET PO SCH ×2 (08:17→16:18)
[2021-08-28 09:41] LABS: Calcium 8.9 mg/dL (8.6-10.3); Potassium 3.8 mEq/L (3.5-5.1)
[2021-08-28] MEDS ORDERED: 0.9 % Sodium Chloride 1,000 ML IVC SCH (10:00)
[2021-08-28] MEDS ORDERED: 0.9 % Sodium Chloride 500 ML IVC ONE (11:06)
[2021-08-29] MEDS: hydrALAZINE 25 MG TABLET PO SCH ×3 (00:34→16:46)
[2021-08-29] MEDS: carvediloL 6.25 MG TABLET PO SCH ×2 (06:28→16:46)
[2021-08-29] MEDS: Insulin LISPRO 300 UNITS/3 ML VIAL SUBQ SCH ×4 (07:42→20:35)
[2021-08-29] MEDS: Gabapentin 300 MG CAPSULE PO SCH ×3 (07:49→20:36)
[2021-08-29] MEDS: Isosorbide MONOnitrate (24 HR) 60 MG TAB.ER.24H PO SCH (07:50)
[2021-08-29] MEDS: Aspirin 81 MG TAB.CHEW PO SCH (07:50)
[2021-08-29] MEDS: amLODIPine 5 MG TABLET PO SCH (07:57)
[2021-08-29 09:25] LABS: Hemoglobin 12.3 g/dL (12.9-16.9); Mean Corpuscular HGB Conc 30.8 g/dL (31.6-35.5); Mean Corpuscular Volume 81.3 fL (83.0-100.0); Mean Platelet Volume 9.7 fL (9.4-12.4); Platelet Count 247 K/mcL (140-400); Red Blood Count 4.92 M/mcL (4.19-5.50); White Blood Count 9.6 K/mcL (4.3-11.1)
[2021-08-29 09:53] LABS: Potassium 3.8 mEq/L (3.5-5.1)
[2021-08-30] MEDS: hydrALAZINE 25 MG TABLET PO SCH ×3 (00:19→14:41)
[2021-08-30 01:14] LABS: Hematocrit 37.8 % (37.5-50.1); Hemoglobin 11.7 g/dL (12.9-16.9); Mean Corpuscular Volume 80.8 fL (83.0-100.0); Platelet Count 239 K/mcL (140-400); Red Blood Count 4.68 M/mcL (4.19-5.50); Red Cell Distribution Width 14.9 % (11.5-14.5)
[2021-08-30 01:34] LABS: Calcium 9.1 mg/dL (8.6-10.3); Potassium 3.9 mEq/L (3.5-5.1)
[2021-08-30] MEDS: Aspirin 81 MG TAB.CHEW PO SCH (09:00)
[2021-08-30] MEDS: carvediloL 6.25 MG TABLET PO SCH ×2 (09:00→17:00)
[2021-08-30] MEDS: Gabapentin 300 MG CAPSULE PO SCH ×3 (09:00→21:05)
[2021-08-30] MEDS: Isosorbide MONOnitrate (24 HR) 60 MG TAB.ER.24H PO SCH (09:00)
[2021-08-30] MEDS: amLODIPine 5 MG TABLET PO SCH (09:00)
[2021-08-30] MEDS: Insulin LISPRO 300 UNITS/3 ML VIAL SUBQ SCH ×4 (09:00→21:05)
[2021-08-30 17:12] LABS: Complement C3 164 mg/dL (87-200)
[2021-08-30 18:08] LABS: Bilirubin,Urine Negative (Negative); Blood,Urine Negative (Negative); Clarity,Urine Clear (Clear); Color,Urine Light-Yellow (Yellow); Glucose,Urine (UA) Normal (Normal); Ketones,Urine Negative (Negative); Leukocyte Esterase,Urine Negative (Negative); Nitrite,Urine Negative (Negative); Protein,Urine >=300 mg/dL (Neg-Trace); RBC,Urine 0-3 per hpf (0-3); Specific Gravity,Urine 1.012 (1.010-1.025); Squamous Epithelial Cell,Urine Few per hpf (None-Few); Urobilinogen,Urine Normal (Normal); WBC,Urine 0-3 per hpf (0-3)
[2021-08-31] MEDS: hydrALAZINE 25 MG TABLET PO SCH ×2 (00:42→08:38)
[2021-08-31 01:53] LABS: Hematocrit 38.3 % (37.5-50.1); Hemoglobin 12.1 g/dL (12.9-16.9); Mean Corpuscular HGB Conc 31.6 g/dL (31.6-35.5); Mean Corpuscular Hemoglobin 25.4 pg (28.0-33.3); Mean Corpuscular Volume 80.3 fL (83.0-100.0); Mean Platelet Volume 9.3 fL (9.4-12.4); Platelet Count 246 K/mcL (140-400); Red Blood Count 4.77 M/mcL (4.19-5.50); Red Cell Distribution Width 14.6 % (11.5-14.5)
[2021-08-31 02:15] LABS: Calcium 9.2 mg/dL (8.6-10.3); Potassium 3.9 mEq/L (3.5-5.1)
[2021-08-31] MEDS: Insulin LISPRO 300 UNITS/3 ML VIAL SUBQ SCH ×2 (08:25→12:07)
[2021-08-31] MEDS: Isosorbide MONOnitrate (24 HR) 60 MG TAB.ER.24H PO SCH (08:37)
[2021-08-31] MEDS: Gabapentin 300 MG CAPSULE PO SCH (08:37)
[2021-08-31] MEDS: Aspirin 81 MG TAB.CHEW PO SCH (08:37)
[2021-08-31] MEDS: amLODIPine 5 MG TABLET PO SCH (08:38)
[2021-08-31] MEDS: carvediloL 6.25 MG TABLET PO SCH (08:38)
[2021-08-31 08:54] LABS: Protein/Creatinine Ratio,Urine 1.21 mg/mg (0.00-0.20); Sodium, Urine 66.3 mEq/L
[2021-08-31 09:40] LABS: Uric Acid 9.2 mg/dL (2.3-7.6)
[2021-08-31 11:54] VITALS: BP 135/74; PULSE 65; TEMP 97.7; O2SAT 91
[2021-09-02 10:28] LABS: ANA IgG by ELISA NONE DETECTED (None Detected)
== END 2021-08-31 14:50 | disposition home or self-care (01) | DRG 280 ==
LOC: 2ANU 22:28 → EMEROOARM 22:28 → SUATTDRO 08-26 05:25 → 2ANU 08-26 05:48
PROVIDERS: ADMIT Internal Medicine; ATTEND Family Medicine

== ENCOUNTER 2022-02-09 15:59 | Observation (INO) ==
[2022-02-09 19:56] LABS: Basophils % 0.7 %; Eosinophils # 0.3 K/mcL (0.0-0.6); Eosinophils % 4.7 %; Hematocrit 39.7 % (37.5-50.1); Hemoglobin 12.7 g/dL (12.9-16.9); Immature Granulocytes % 0.5 % (0-4); Lymphocytes # 1.9 K/mcL (0.6-4.6); Lymphocytes % 32.6 %; Mean Corpuscular Hemoglobin 25.6 pg (28.0-33.3); Mean Platelet Volume 9.1 fL (9.4-12.4); Monocytes # 0.5 K/mcL (0.0-1.3); Platelet Count 184 K/mcL (140-400); Red Blood Count 4.96 M/mcL (4.19-5.50); Red Cell Distribution Width 14.6 % (11.5-14.5); Segmented Neutrophils % 52.5 %; White Blood Count 5.8 K/mcL (4.3-11.1)
[2022-02-09 20:18] LABS: Potassium 4.5 mEq/L (3.5-5.1)
[2022-02-09 20:44] LABS: Albumin 3.8 g/dL (3.5-5.7); Albumin/Globulin Ratio 1.2 (1.1-2.2); Bilirubin,Indirect 0.5 mg/dL (0.0-1.0); Bilirubin,Total 0.5 mg/dL (0.3-1.0); Globulin 3.3 g/dL (2.4-3.5); Total Protein 7.1 g/dL (6.4-8.9); Troponin I 0.04 ng/mL (< 0.04)
[2022-02-09] MEDS ORDERED: Aspirin 325 MG TABLET PO ONE (21:03)
[2022-02-09 21:17] LABS: Adenovirus Not Detected (Not Detect); Coronavirus 229E Not Detected (Not Detect); Coronavirus HKU1 Not Detected (Not Detect); Coronavirus NL63 Not Detected (Not Detect); Coronavirus OC43 Not Detected (Not Detect)
[2022-02-09 21:18] LABS: Bordetella Pertussis Not Detected (Not Detect); Chlamydophila pneumoniae Not Detected (Not Detect); Human Metapneumovirus Not Detected (Not Detect); Human Rhinovirus/Enterovirus Not Detected (Not Detect); Influenza A Subtype 2009 H1 Not Detected (Not Detect); Influenza B Not Detected (Not Detect); Mycoplasma pneumoniae Not Detected (Not Detect); Parainfluenza Virus 1 Not Detected (Not Detect); Parainfluenza Virus 2 Not Detected (Not Detect); Parainfluenza Virus 3 Not Detected (Not Detect); Parainfluenza Virus 4 Not Detected (Not Detect); Respiratory Syncytial Virus Not Detected (Not Detect); SARS-CoV-2 DETECTED (Not Detect)
[2022-02-09] MEDS ORDERED: Ondansetron 4 MG/2 ML VIAL IVP PRN (22:16)
[2022-02-09] MEDS ORDERED: Melatonin 3 MG TABLET PO PRN (22:16)
[2022-02-09] MEDS ORDERED: Naloxone 0.4 MG/ML INJ IVP PRN (22:16)
[2022-02-09] MEDS ORDERED: Acetaminophen 325 MG TABLET PO PRN (22:16)
[2022-02-10 01:49] LABS: Hematocrit 37.6 % (37.5-50.1); Hemoglobin 11.8 g/dL (12.9-16.9); Mean Corpuscular HGB Conc 31.4 g/dL (31.6-35.5); Mean Corpuscular Hemoglobin 25.5 pg (28.0-33.3); Mean Corpuscular Volume 81.4 fL (83.0-100.0); Mean Platelet Volume 9.2 fL (9.4-12.4); Platelet Count 179 K/mcL (140-400); Red Blood Count 4.62 M/mcL (4.19-5.50); Red Cell Distribution Width 14.6 % (11.5-14.5); White Blood Count 5.3 K/mcL (4.3-11.1)
[2022-02-10 02:04] LABS: INR 1.1; Prothrombin Time 11.7 Seconds (9.4-12.1)
[2022-02-10 02:06] LABS: Activated Partial Thrombo Time 27.5 Seconds (26.0-36.0)
[2022-02-10 02:12] LABS: Calcium 8.3 mg/dL (8.6-10.3); Magnesium 1.1 mg/dL (1.6-2.6); Phosphorous 3.7 mg/dL (2.7-4.5)
[2022-02-10 02:14] LABS: % Iron Saturation 15 % (20-55); Iron 40 mcg/dL (65-175); Transferrin 195 mg/dL (203-362)
[2022-02-10] MEDS ORDERED: Iron Sucrose Complex 400 MG in 0.9 % Sodium Chloride 250 ML IVPB ONE (02:15)
[2022-02-10] MEDS ORDERED: Perflutren Lipid Microsphere 1.3 ML in 0.9 % Sodium Chloride 8.7 ML IVP PRN (02:16)
[2022-02-10] MEDS ORDERED: *HR* Dextrose 50 % in Water (Syg) 50 ML SYRINGE IVP PRN (02:29)
[2022-02-10] MEDS ORDERED: Dextrose Gel 15 GM/37.5 ML TUBE PO PRN ×2 (02:29)
[2022-02-10] MEDS ORDERED: D5% in Water 1,000 ML IVC PRN (02:29)
[2022-02-10 02:53] LABS: Ferritin 101 ng/mL (20-250)
[2022-02-10 03:00] LABS: Folate > 22.3 ng/mL (3.0-16.0); Vitamin B12 557 pg/mL (250-1100)
[2022-02-10 04:36] LABS: C-Reactive Protein < 5 mg/L (Less than 10); Lactate Dehydrogenase 204 Units/L (140-271)
[2022-02-10 05:06] LABS: Troponin I 0.04 ng/mL (< 0.04)
[2022-02-10] MEDS ORDERED: *HR* Heparin 5,000 UNIT/ML VIAL SQ SCH (06:00)
[2022-02-10 06:10] LABS: Estimated Average Glucose 255 mg/dl; Hemoglobin A1C 10.5 %
[2022-02-10] MEDS: Ipratropium 1 PUFF INHALER IH SCH ×3 (07:56→15:26)
[2022-02-10] MEDS ORDERED: carvediloL 6.25 MG TABLET PO SCH (08:00)
[2022-02-10] MEDS ORDERED: Aspirin 81 MG TAB.CHEW PO SCH (09:00)
[2022-02-10] MEDS ORDERED: lisinopriL 10 MG TABLET PO SCH (09:00)
[2022-02-10] MEDS ORDERED: Multivit/Ca/Min/Fe/FA 1 TAB TABLET PO SCH (09:00)
[2022-02-10] MEDS ORDERED: Chlorhexidine Rinse 15 ML MOUTHWASH MM SCH (09:00)
[2022-02-10] MEDS ORDERED: Spironolactone 25 MG TABLET PO SCH (09:00)
[2022-02-10] MEDS ORDERED: Isosorbide MONOnitrate (24 HR) 60 MG TAB.ER.24H PO SCH (09:00)
[2022-02-10] MEDS ORDERED: Metoprolol XL (24 HR) Succ 25 MG TAB.ER.24H PO SCH (09:00)
[2022-02-10] MEDS ORDERED: SULFUR HEXAFLUORIDE MICROSPHR 25 MG VIAL IVP ONE (09:09)
[2022-02-10] MEDS: Insulin LISPRO 300 UNITS/3 ML VIAL SUBQ SCH ×2 (09:39→11:54)
[2022-02-10 10:51] LABS: Amphetamine Screen,Urine Negative ng/mL (Cutoff=1000); Barbiturate Screen,Urine Negative ng/mL (Cutoff=200); Benzodiazepines Screen,Urine Negative ng/mL (Cutoff=200); Cannabinoid Screen,Urine Negative ng/mL (Cutoff = 50); Cocaine Screen,Urine Negative ng/mL (Cutoff= 300); Opiate Screen,Urine Negative ng/mL (Cutoff=300); Phencyclidine Screen,Urine Negative ng/mL (Cutoff=25)
[2022-02-10 11:33] VITALS: BP 114/71; PULSE 71; TEMP 98.2
[2022-02-10 15:28] VITALS: O2SAT 95
[2022-02-10] MEDS ORDERED: *HR* Rivaroxaban 10 MG TABLET PO SCH (17:00)
== END 2022-02-10 17:05 | disposition home or self-care (01) ==
LOC: EMEROOARM 15:59 → 3BNU 15:59 → SUATTDRO 22:26 → 3BNU 23:07
PROVIDERS: ADMIT Internal Medicine; ATTEND Nurse Practitioner